=== PATIENT | female | born 1960 | race Caucasian/White ===

== ENCOUNTER 2018-05-28 09:09 | Emergency (ER) | payer BC ==
[~2018-05-28] VITALS: Wt 67.0 kg
[~2018-05-28 09:09] MED LIST: BEN50 PO; CETI10CA PO; HC30CR25 TOP; PRED20TA PO
[2018-05-28] MEDS ORDERED: SOD CHLORIDE 0.9% 1,000 ML IV STA (09:29)
[2018-05-28] MEDS ORDERED: ONDANSETRON 4 MG INJ IV STA (09:29)
[2018-05-28] MEDS ORDERED: KETOROLAC 30 MG INJ IV STA ×2 (09:29→10:27)
[2018-05-28] MEDS ORDERED: BUTA1CAP38 PO (10:54)
[2018-05-28 11:29] VITALS: BP 160/75; PULSE 66; RESP 18
--- NOTE | 2018-05-28 12:09 | ERD ---
ER Documentation Chief Complaint Chief Complaint browne x 3 days HPI 57-year-old female presents with headache times 3 days. Patient states her headache is on her right side and is constant over the last 3 days. Denies any visual changes or vomiting. Has no injuries. Denies any dizziness or difficulty walking. Denies chest pain or shortness of breath. Denies medical problems. NKDA. Surgical history denies. Social history denies ROS All systems reviewed and are negative except as per history of present illness. Medications Home Meds Active Scripts Zyinixhbez-Ikunrrvxfmrwb-Vpcqgdvt* (Fioricet*) 50-300-40 Mg Capsule, 1 CAP PO Q4H PRN for HEADACHE, #30 CAP Prov:DORENE TOLENTINO PA-C 05/28/18 Cetirizine Hcl* (Zyrtec*) 10 Mg Capsule, 10 MG PO DAILY, #7 TAB.CHEW Prov:LYNDON HERNANDEZ PA-C 12/12/15 Prednisone* (Prednisone*) 20 Mg Tab, 40 MG PO DAILY for 4 Days, TAB Prov:LYNDON HERNANDEZ PA-C 12/12/15 Hydrocortisone* Topical (Hydrocortisone* Topical) 2.5%-28.3 Gm Cream..g., 1 APPLIC TOP BID for 7 Days, #1 TUB Prov:LYNDON HERNANDEZ PA-C 12/12/15 Diphenhydramine Hcl* (Benadryl*) 50 Mg Cap, 50 MG PO Q6 PRN for ITCHING, #30 CAP Prov:LYNDON HERNANDEZ PA-C 12/12/15 Allergies Allergies: Coded Allergies: No Known Allergy (Unverified , 12/11/15) PMhx/Soc History of Surgery: No Anesthesia Reaction: No Hx Neurological Disorder: No Hx Respiratory Disorders: No Hx Cardiac Disorders: No Hx Psychiatric Problems: No Hx Miscellaneous Medical Probl: No (DENIES MEDICAL AND SURGICAL HX.) Hx Alcohol Use: No Hx Substance Use: No Hx Tobacco Use: No Smoking Status: Never smoker FmHx Family History: No diabetes, No coronary disease, No other Physical Exam Vitals Vital Signs Date Temp Pulse Resp B/P (MAP) Pulse Ox O2 O2 Flow FiO2 Time Delivery Rate 05/28/18 98.1 66 18 160/75 98 Room Air 11:29 (103) 05/28/18 98.1 90 18 159/78 99 09:12 (105) Physical Exam GENERAL: The patient is well-appearing, well-nourished, in no acute distress HEENT: Atraumatic. Conjunctivae are pink. Pupils equal, round, and reactive to light. There is no scleral icterus. Tympanic membranes clear bilaterally. Oropharynx clear. NECK: C-spine is soft and supple. There is no meningismus. There is no cervical lymphadenopathy. CHEST: Clear to auscultation bilaterally. There are no rales, wheezes or rhonchi. HEART: Regular rate and rhythm. No murmurs, clicks, rubs or gallops. EXTREMITIES: Equal pulses bilaterally. There is no peripheral clubbing, cyanosis or edema. No focal swelling or erythema. Full range of motion. Grossly neurovascularly intact. NEUROLOGIC: Alert and oriented. Cranial nerves II through XII intact. Motor strength in all 4 extremities with 5 out of 5 strength. Sensation grossly intact. Normal speech and gait. Results 24 hrs Laboratory Tests Test 05/28/18 09:52 Urine Color YELLOW Urine Clarity CLOUDY Urine pH 8.0 Urine Specific Stow 1.016 Urine Ketones NEGATIVE mg/dL Urine Nitrite NEGATIVE mg/dL Urine Bilirubin NEGATIVE mg/dL Urine Urobilinogen NEGATIVE mg/dL Urine Leukocyte Esterase NEGATIVE Marycarmen/ul Urine Microscopic RBC 1 /HPF Urine Microscopic WBC 17 /HPF Urine Amorphous Crystals FEW /HPF Urine Mucus FEW /HPF Urine Hemoglobin NEGATIVE mg/dL Urine Glucose NEGATIVE mg/dL Urine Total Protein 1+ mg/dl Current Medications Medications Dose Sig/Tracy Start Time Status Last (Trade) Ordered Route PRN Stop Time Admin Dose Reason Admin Sodium 1,000 ml @ Q1H STAT 05/28/18 DC 05/28/18 Chloride 1,000 mls/hr IV 09:29 05/28/18 09:55 10:28 Ondansetron 4 mg ONCE STAT 05/28/18 DC 05/28/18 HCl (Zofran IV 09:29 05/28/18 09:55 Inj) 09:31 Ketorolac 30 mg ONCE STAT 05/28/18 DC 05/28/18 Tromethamine IV 09:29 05/28/18 09:55 (Toradol) 09:31 Ketorolac 30 mg ONCE STAT 05/28/18 DC 05/28/18 Tromethamine IV 10:27 05/28/18 10:50 (Toradol) 10:28 Procedures/MDM DIAGNOSTIC IMAGING REPORT Patient: NOE LARSON : 1960 Age: 57 Sex: F MR #: [id number] [facility] #: [id number] DOS: 05/28/18 0929 Ordering MD: ROGERIO TOLENTINO PA-C Location: [facility] Room/Bed: PROCEDURE: CT Brain without contrast. CLINICAL INDICATION: Headache TECHNIQUE: A CT of the brain was performed utilizing axial imaging from the skull base through the vertex without IV contrast. Multiplanar reformatted images were made. Images were reviewed on a PACS workstation. CTDIvol: 39.20 mGy DLP: 634.23 mGycm DICOM images are available. One or more of the following dose reduction techniques were utilized: 1.) Automated exposure control 2.) Adjustment of the mA +/- kV according to patient's size 3.) Use of iterative reconstruction technique. COMPARISON: None FINDINGS: CALVARIUM: Regional bones are intact. SINUSES: Paranasal sinuses and mastoid air cells are clear. BRAIN: There is no evidence of intracranial hemorrhage. Prominence of ventricles and cisterns is normal for age. Focal prominence of CSF space anterior to the left temporal lobe is consistent with a 12 mm arachnoid cyst. Hernadez - white differentiation is preserved and there is no evidence of an acute or subacute territorial infarction. No intracranial mass or mass effect. IMPRESSION: 1. No acute intracranial abnormality. 2. Incidental 12 mm benign arachnoid cyst anterior to the left temporal lobe. ER Course: 1L NS, Zofran and Toradol given in ED MDM: 57-year-old female presenting with headache times 3 days. Patient's G is within normal limits. Patient symptoms improved on medication. I have low suspicion for intracranial hemorrhage or neuro deficit. Patient is discharged with strict ER precautions and told to follow-up with primary care within 1-2 days for close evaluation. Patient is told if symptoms change or worsen to return to the ER immediately. All questions answered at discharge Departure Diagnosis: Primary Impression: Headache Condition: Stable Patient Instructions: Self-Care for Headaches Referrals: COMMUNITY CLINICS YOU HAVE RECEIVED A MEDICAL SCREENING EXAM AND THE RESULTS INDICATE THAT YOU DO NOT HAVE A CONDITION THAT REQUIRES URGENT TREATMENT IN THE EMERGENCY DEPARTMENT. FURTHER EVALUATION AND TREATMENT OF YOUR CONDITION CAN WAIT UNTIL YOU ARE SEEN IN YOUR DOCTORS OFFICE WITHIN THE NEXT 1-2 DAYS. IT IS YOUR RESPONSIBILITY TO MAKE AN APPOINTMENT FOR FOLOW-UP CARE. IF YOU HAVE A PRIMARY DOCTOR --you should call your primary doctor and schedule an appointment IF YOU DO NOT HAVE A PRIMARY DOCTOR YOU CAN CALL OUR PHYSICIAN REFERRAL HOTLINE AT IF YOU CAN NOT AFFORD TO SEE A PHYSICIAN YOU CAN CHOSE FROM THE FOLLOWING [facility] CL[facility] [address] [facility] [address] [email or web address] [address] [facility] [address] [facility] [address] [facility]. [facility]. [address] Additional Instructions: FOLLOW UP WITH YOUR PRIMARY CARE PHYSICIAN TOMORROW.Return to this facility if you are not improving as expected. DORENE TOLENTINO PA-C May 28, 2018 12:09
== END 2018-05-28 11:31 | disposition home or self-care (01) ==
LOC: FTE 09:09
DX: R51 Headache (principal)
CPT/HCPCS: 70450; 81001; 96361; 96374; 96375; 96376; 99285; J1885; J2405; J7030

== ENCOUNTER 2018-12-27 08:59 | Day surgery (SDC) | payer BC ==
[~2018-12-27] VITALS: Ht 154.9 cm; Wt 74.0 kg
[~2018-12-27 08:59] MED LIST changes: +ATOR-2 PO; +BUTA1CAP38 PO
[2018-12-27 10:39] VITALS: Ht 154.9 cm; Wt 74.0 kg
[2018-12-27 11:27] VITALS: BP 155/79; PULSE 70; RESP 20
[2018-12-27] MEDS ORDERED: LIDOCAINE 4% SOLUTION 50 ML BTL ONE (11:28)
[2018-12-27 12:05] VITALS: BP 146/82; PULSE 70; RESP 20
[2018-12-27 12:10] VITALS: BP 143/86; PULSE 68; RESP 20
[2018-12-27] MEDS ORDERED: MIDAZOLAM 1 MG/ML 2 ML INJ ONE ×2 (12:14)
[2018-12-27] MEDS ORDERED: FENTAnyl 50 MCG/ML VIAL ONE (12:14)
[2018-12-27 12:15] VITALS: BP 153/106; PULSE 70; RESP 21
== END 2018-12-27 14:30 | disposition home or self-care (01) ==
LOC: GIL 08:59
PROVIDERS: ATTEND Internal Medicine Gastroenterology
DX: Z12.11 Encounter for screening for malignant neoplasm of colon (principal); K64.1 Second degree hemorrhoids; D12.4 Benign neoplasm of descending colon; K20.8 Other esophagitis; K29.70 Gastritis, unspecified, without bleeding
CPT/HCPCS: 43239; 45380; 88305; 88312; J2250; J3010; Z7610